=== PATIENT | male | born 1955 | race Caucasian/White ===

== ENCOUNTER 2016-03-21 12:22 | Inpatient (IN) | payer MEDICARE, MEDICAID ==
[~2016-03-21] VITALS: Ht 185.4 cm; Wt 111.2 kg
[~2016-03-21 12:22] MED LIST: AMLO10TA2 PO; ESCI10TA53 PO; GABA300C8 PO; LEVO750T3 PO; LISI-646 PO; METO-169 PO; OXYCTAB PO; Pantoprazole Sodium Sesquihydr PO; SACC250C PO
[2016-03-21 14:06] LABS: Basophils # (auto) 0 uL; Basophils % (auto) 0.6 % (0.0-2.0); Eosinophils # (auto) 0 uL; Eosinophils % (auto) 0.7 % (0.0-7.0); Hematocrit 50.4 % (41.0-53.0); Hemoglobin 16.3 g/dL (13.5-17.5); Lymphocytes # (auto) 0.9 uL; Lymphocytes % (auto) 13.9 % (10.0-50.0); Mean Corpuscular Hgb Conc. 32.4 g/dL (32.0-36.0); Mean Corpuscular Volume 89.5 fL (80.0-100.0); Mean Platelet Volume 8.1 fL (7.4-10.4); Monocytes # (auto) 0.4 uL; Monocytes % (auto) 6.9 % (0.0-12.0); Neutrophils # (auto) 5.1 uL; Neutrophils % (auto) 77.9 % (37.0-80.0); Platelet Count (auto) 141 10^3/uL (140-450); Red Cell Distribution Width 13.9 % (11.6-16.0); SUSPECT VIEW TRANSMISSION; White Blood Cell 6.4 10^3/uL (4.4-10.8)
[2016-03-21 14:08] LABS: Albumin 3.6 g/dL (3.4-5.0); BUN/Creatinine Ratio 17.7; Bilirubin, Total 0.7 mg/dL (0.2-1.0); Calcium 9.6 mg/dL (8.5-10.1); Potassium 4.5 mmol/L (3.5-5.1); Total Protein 7.5 g/dL (6.4-8.2)
[2016-03-21 17:20] LABS: INR 1.1 (0.9-1.15); Partial Thromboplastin Time 28.2 sec (22.64-33.71); Prothrombin Time 11.3 sec (9.37-12.3)
[2016-03-21] MEDS ORDERED: PROMETHAZINE HCL 25 MG/ML 1ML IV PRN (18:15)
[2016-03-21] MEDS ORDERED: ACETAMINOPHEN 500 MG TAB PO PRN (18:15)
[2016-03-21] MEDS ORDERED: NITROGLYCERIN 0.4 MG SL TAB SL PRN (18:15)
[2016-03-21] MEDS ORDERED: GABAPENTIN 400 MG CAP PO ONE (18:15)
[2016-03-21] MEDS ORDERED: ALBUTEROL SULF 2.5 MG/0.5ML(0.5%) NEB SOLN NEB PRN (18:15)
[2016-03-21] MEDS ORDERED: OSELTAMIVIR 75 MG CAP PO ONE (18:15)
[2016-03-21] MEDS ORDERED: LACTULOSE 20Gm/30ML SOLN PO PRN (18:15)
[2016-03-21] MEDS ORDERED: LEVOFLOXACIN 750MG 150 ML IV ONE (18:15)
[2016-03-21] MEDS ORDERED: DEXTROSE (50%) 50ML SYRG IV PRN (18:15)
[2016-03-21] MEDS ORDERED: MORPHINE SULF INJ 2 MG/ML SYRINGE 1ML IV PRN (18:15)
[2016-03-21] MEDS: SODIUM CHLORIDE 0.9% 1,000 ML IV SCH (18:17)
[2016-03-21] MEDS ORDERED: ASPirin 81 mg TAB PO ONE (18:30)
[2016-03-21] MEDS: ENOXAPARIN SOD 40 MG/0.4 ML SYRINGE SC SCH (18:39)
[2016-03-21 19:11] LABS: Cholesterol 143 mg/dL (<200); HDL Cholesterol 48 mg/dL (40-59); LDL Cholesterol 89 mg/dL (<100); Triglycerides 108 mg/dL (<150)
[2016-03-21 19:43] LABS: Temperature: 22.5 C (20.0-25.0)
[2016-03-21] MEDS: MORPHINE SULF INJ 2 MG/ML SYRINGE 1ML IV PRN (20:38)
[2016-03-21 20:42] VITALS: BP 114/81
[2016-03-21] MEDS: ACCU-CHEK COMFORT CURVE STRIP VI SCH (21:40)
[2016-03-21] MEDS: ATORVASTATIN 20 MG TAB PO SCH (21:46)
[2016-03-21 22:00] VITALS: BP 114/81
[2016-03-21] MEDS ORDERED: PATIENTS OWN MEDICATION ([Pantoprazole Sodium Sesquihydr] (Protonix Tablet) 40 MG) PO SCH (22:00)
[2016-03-21] MEDS ORDERED: PATIENTS OWN MEDICATION (Escitalopram Oxalate 1 TAB) PO SCH (22:00)
[2016-03-21] MEDS: InsuLIN REG 1unit/0.01ml Soln (100units/ml) SC SCH (22:00)
[2016-03-21] MEDS: GABAPENTIN 300 MG CAP PO SCH (23:10)
[2016-03-21] MEDS: LORazepam 0.5 MG TAB PO PRN (23:15)
[2016-03-22] MEDS: ALBUTEROL SULF 2.5 MG/0.5ML(0.5%) NEB SOLN NEB SCH ×4 (00:40→19:43)
[2016-03-22] MEDS: IPRATROPIUM BROM 0.5 MG/2.5ML INH SOL NEB SCH ×4 (00:40→19:43)
[2016-03-22] MEDS: TEMAZEPAM 15 MG CAP PO PRN (01:49)
[2016-03-22] MEDS: MORPHINE SULF INJ 2 MG/ML SYRINGE 1ML IV PRN ×2 (01:53→08:44)
[2016-03-22 05:00] VITALS: BP 114/69
[2016-03-22] MEDS: GABAPENTIN 300 MG CAP PO SCH ×3 (06:35→21:58)
[2016-03-22] MEDS: ACCU-CHEK COMFORT CURVE STRIP VI SCH ×4 (06:38→22:05)
[2016-03-22] MEDS: InsuLIN REG 1unit/0.01ml Soln (100units/ml) SC SCH ×4 (06:38→22:05)
[2016-03-22] MEDS: SODIUM CHLORIDE 0.9% 1,000 ML IV SCH (07:35)
[2016-03-22 08:42] VITALS: BP 102/65
[2016-03-22] MEDS: ENOXAPARIN SOD 40 MG/0.4 ML SYRINGE SC SCH (09:56)
[2016-03-22] MEDS: PANTOPRAZOLE 40 MG TAB PO SCH ×2 (09:56→21:58)
[2016-03-22] MEDS: ASPirin 81 mg TAB PO SCH (09:57)
[2016-03-22] MEDS: METOPROLOL SUCCINATE XL 50 MG TAB PO SCH (09:57)
[2016-03-22] MEDS: amLODIPine BESYLATE 5 MG TAB PO SCH (09:58)
[2016-03-22] MEDS: LISINOPRIL 20 MG TAB PO SCH (09:58)
[2016-03-22] MEDS ORDERED: OSELTAMIVIR 75 MG CAP PO SCH (10:00)
[2016-03-22] MEDS ORDERED: LEVOFLOXACIN 500MG 100 ML IV SCH (10:00)
[2016-03-22] MEDS ORDERED: PATIENTS OWN MEDICATION (Amlodipine Besylate 1 TAB) PO SCH ×2 (10:00)
[2016-03-22] MEDS ORDERED: POTA10TA34 PO (11:32)
[2016-03-22] MEDS ORDERED: OXYC325T14 PO (12:16)
[2016-03-22 13:00] VITALS: BP 107/71
[2016-03-22] MEDS ORDERED: LORATADINE 10 MG TAB PO ONE (13:30)
[2016-03-22] MEDS ORDERED: AZITHROMYCIN 250 MG TAB PO ONE (13:30)
[2016-03-22] MEDS ORDERED: cefTRIAXone 1GM/50ML D5W 50 ML IV ONE (13:30)
[2016-03-22] MEDS ORDERED: LORazepam 2MG/ML-1ML VIAL IV PRN (14:45)
[2016-03-22 15:59] VITALS: BP 101/71
[2016-03-22 17:12] VITALS: BP 96/66
[2016-03-22 20:21] VITALS: BP 123/68
[2016-03-22] MEDS: OXYCODONE W/ ACETAMINOPHEN 5/325MG TABLET PO PRN (20:47)
[2016-03-22] MEDS: CITALOPRAM HYDROBR 20 MG TAB PO SCH (21:54)
[2016-03-22] MEDS: ATORVASTATIN 20 MG TAB PO SCH (21:57)
[2016-03-23] MEDS: ALBUTEROL SULF 2.5 MG/0.5ML(0.5%) NEB SOLN NEB SCH ×5 (00:38→23:58)
[2016-03-23] MEDS: IPRATROPIUM BROM 0.5 MG/2.5ML INH SOL NEB SCH ×5 (00:38→23:58)
[2016-03-23] MEDS: LORazepam 0.5 MG TAB PO PRN (01:34)
[2016-03-23 05:08] VITALS: BP 158/77
[2016-03-23] MEDS: GABAPENTIN 300 MG CAP PO SCH ×3 (07:15→22:02)
[2016-03-23] MEDS: InsuLIN REG 1unit/0.01ml Soln (100units/ml) SC SCH ×4 (07:20→23:19)
[2016-03-23] MEDS: ACCU-CHEK COMFORT CURVE STRIP VI SCH ×4 (07:22→22:02)
[2016-03-23] MEDS: MORPHINE SULF INJ 2 MG/ML SYRINGE 1ML IV PRN (08:17)
[2016-03-23 09:00] VITALS: BP 123/77
[2016-03-23] MEDS: ASPirin 81 mg TAB PO SCH (09:11)
[2016-03-23] MEDS: cefTRIAXone 1GM/50ML D5W 50 ML IV SCH (09:11)
[2016-03-23] MEDS: AZITHROMYCIN 250 MG TAB PO SCH (09:11)
[2016-03-23] MEDS: LISINOPRIL 20 MG TAB PO SCH (09:12)
[2016-03-23] MEDS: LORATADINE 10 MG TAB PO SCH (09:12)
[2016-03-23] MEDS: METOPROLOL SUCCINATE XL 50 MG TAB PO SCH (09:13)
[2016-03-23] MEDS: PANTOPRAZOLE 40 MG TAB PO SCH ×2 (09:13→22:02)
[2016-03-23] MEDS: amLODIPine BESYLATE 5 MG TAB PO SCH (09:17)
[2016-03-23] MEDS: OXYCODONE W/ ACETAMINOPHEN 5/325MG TABLET PO PRN ×3 (10:50→23:17)
[2016-03-23 13:03] VITALS: BP 124/82
[2016-03-23 17:07] VITALS: BP 135/88
[2016-03-23 21:37] VITALS: BP 132/81
[2016-03-23] MEDS: CITALOPRAM HYDROBR 20 MG TAB PO SCH (22:01)
[2016-03-23] MEDS: ATORVASTATIN 20 MG TAB PO SCH (22:02)
[2016-03-23] MEDS: TEMAZEPAM 15 MG CAP PO PRN (23:18)
[2016-03-24 04:54] VITALS: BP 140/82
[2016-03-24] MEDS: GABAPENTIN 300 MG CAP PO SCH ×2 (05:42→13:35)
[2016-03-24] MEDS: OXYCODONE W/ ACETAMINOPHEN 5/325MG TABLET PO PRN ×2 (05:43→11:40)
[2016-03-24] MEDS: ALBUTEROL SULF 2.5 MG/0.5ML(0.5%) NEB SOLN NEB SCH ×2 (06:00→11:56)
[2016-03-24] MEDS: InsuLIN REG 1unit/0.01ml Soln (100units/ml) SC SCH ×3 (06:24→16:34)
[2016-03-24] MEDS: ACCU-CHEK COMFORT CURVE STRIP VI SCH ×3 (06:24→16:34)
[2016-03-24] MEDS: IPRATROPIUM BROM 0.5 MG/2.5ML INH SOL NEB SCH ×2 (08:00→11:56)
[2016-03-24] MEDS: cefTRIAXone 1GM/50ML D5W 50 ML IV SCH (09:13)
[2016-03-24] MEDS: PANTOPRAZOLE 40 MG TAB PO SCH (09:14)
[2016-03-24] MEDS: AZITHROMYCIN 250 MG TAB PO SCH (09:14)
[2016-03-24] MEDS: LORATADINE 10 MG TAB PO SCH (09:14)
[2016-03-24] MEDS: ASPirin 81 mg TAB PO SCH (09:15)
[2016-03-24] MEDS: amLODIPine BESYLATE 5 MG TAB PO SCH (09:15)
[2016-03-24] MEDS: LISINOPRIL 20 MG TAB PO SCH (09:16)
[2016-03-24] MEDS: METOPROLOL SUCCINATE XL 50 MG TAB PO SCH (09:16)
[2016-03-24 09:23] VITALS: BP 138/75
[2016-03-24 13:17] VITALS: BP 135/78
[2016-03-24] MEDS ORDERED: KETOROLAC TROMETH 30 MG/ML 1ML VIAL IV ONE (14:45)
[2016-03-24 15:35] VITALS: BP 111/71
[2016-03-24 17:06] VITALS: BP 156/89
== END 2016-03-24 17:20 | disposition home or self-care (01) | DRG 194 ==
LOC: EDBD → ER 12:24 → TELE-WESTW 12:25 → UNDOADMIN 12:25 → TELE 12:25 → ER 20:00 → TELE-WESTW 20:00 → WEST WING 03-22 13:47 → UNDODISIN 03-24 17:20
PROVIDERS: ADMIT Internal Medicine; ATTEND Internal Medicine
DX: J18.9 Pneumonia, unspecified organism (principal); G45.9 Transient cerebral ischemic attack, unspecified; I12.9 Hypertensive chronic kidney disease with stage 1 through stage 4 chronic kidney disease, or unspecified chronic kidney disease; I25.10 Atherosclerotic heart disease of native coronary artery without angina pectoris; N18.3 Chronic kidney disease, stage 3 (moderate); H54.8 Legal blindness, as defined in USA; G40.409 Other generalized epilepsy and epileptic syndromes, not intractable, without status epilepticus; E11.319 Type 2 diabetes mellitus with unspecified diabetic retinopathy without macular edema; G89.4 Chronic pain syndrome; E11.22 Type 2 diabetes mellitus with diabetic chronic kidney disease; E11.41 Type 2 diabetes mellitus with diabetic mononeuropathy; E66.9 Obesity, unspecified; M54.9 Dorsalgia, unspecified; M75.52 Bursitis of left shoulder; M75.92 Shoulder lesion, unspecified, left shoulder; Z79.899 Other long term (current) drug therapy; Z88.0 Allergy status to penicillin; Z88.8 Allergy status to other drugs, medicaments and biological substances; Z82.49 Family history of ischemic heart disease and other diseases of the circulatory system; Z82.3 Family history of stroke; Z83.3 Family history of diabetes mellitus; Z86.73 Personal history of transient ischemic attack (TIA), and cerebral infarction without residual deficits; Z90.49 Acquired absence of other specified parts of digestive tract; Z98.890 Other specified postprocedural states; Z68.32 Body mass index [BMI] 32.0-32.9, adult
CPT/HCPCS: 36415; 70450; 70551; 71010; 71020; 73030; 80053; 80061; 82550; 82607; 82746; 82962; 83036; 83735; 84443; 84484; 85025; 85049; 85610; 85652; 85730; 87040; 87077; 87186; 87400; 93005; 93886; 94640; 95819; 96365; 96366; 97001; J0696; J1815; J1885; J1956

== ENCOUNTER 2016-03-25 01:36 | Emergency (ER) | payer MEDICARE, MEDICAID ==
[~2016-03-25] VITALS: Ht 188 cm; Wt 113.4 kg
[~2016-03-25 01:36] MED LIST changes: +OXYC325T14 PO; +POTA10TA34 PO
[2016-03-25 01:39] VITALS: BP 0/0
[2016-03-25] MEDS ORDERED: EPINEPHrine HCL 1 MG/10 ML SYRG IV ONE (09:01)
[2016-03-25] MEDS ORDERED: SODIUM BICARBONATE 8.4% INJ 50ML SYRINGE IV ONE (09:01)
== END 2016-03-25 01:50 | disposition expired ==
LOC: EDBD → EDUNIT# 01:36 → EDBD 01:36 → ER 01:38
DX: I46.9 Cardiac arrest, cause unspecified (principal); E11.9 Type 2 diabetes mellitus without complications; I10 Essential (primary) hypertension; H54.0 Blindness, both eyes; G89.29 Other chronic pain; M54.9 Dorsalgia, unspecified; Z90.89 Acquired absence of other organs; Z88.0 Allergy status to penicillin; Z88.6 Allergy status to analgesic agent
CPT/HCPCS: 31500; 92950; 99291; J0171